=== PATIENT | female | born 1965 | race Asian ===

== ENCOUNTER 2017-12-31 07:40 | Day surgery (SDC) | payer OTHER ==
[2017-12-31] MEDS ORDERED: LIDOCAINE 4% SOLUTION 50 ML BTL (09:21)
[2017-12-31] MEDS ORDERED: MIDAZOLAM 1 MG/ML 2 ML INJ (10:32)
[2017-12-31] MEDS ORDERED: FENTAnyl 50 MCG/ML VIAL (10:32)
== END 2017-12-31 11:21 | disposition home or self-care (01) ==
LOC: GIL 07:40
DX: R19.5 Other fecal abnormalities (principal); K29.70 Gastritis, unspecified, without bleeding; K64.4 Residual hemorrhoidal skin tags; K62.1 Rectal polyp
CPT/HCPCS: 43239; 88305; 88312